=== PATIENT | male | born 1960 | race Caucasian/White ===

== ENCOUNTER → 2016-05-16 | Outpatient (CLI) | payer BC ==
--- NOTE | 2016-05-19 11:27 | SLEEPCENT ---
DATE OF PROCEDURE: 05/16/2016 ORDERED BY: Cecilia Das. Nocturnal polysomnography was performed for the retitration of pressure therapy in this patient with known obstructive sleep apnea syndrome. For testing, a [employer] Bro[employer] View full face mask of medium size was used. 9 cm of water pressure was initially applied to the circuit and the lights were extinguished. 7 hours and 31 minutes of data were reviewed. There were 382 minutes of sleep identified. Sleep latency was normal at 15.5 minutes. REM latency was normal at 62 minutes. Sleep architecture was fairly good. There were five rapid eye movement (REM) periods appreciated. Overall sleep efficiency was 86%. EKG showed a sinus rhythm with an average heart rate of 60 beats per minute. EEG showed normal wave forms for awake and sleep. Respiratory events were fully palliated with CPAP at a pressure of +9. CPAP tolerance was good. Remaining measures of sleep physiology were normal. IMPRESSION: Obstructive sleep apnea syndrome (G47.33). RECOMMENDATION: Nightly use of pressure therapy 9 cm of water.
== END ==
LOC: M SLEEP 19:37
PROVIDERS: ATTEND Nurse Practitioner Adult Health
DX: G47.33 Obstructive sleep apnea (adult) (pediatric) (principal)

== ENCOUNTER → 2016-08-07 | Outpatient (REF) | payer BC | LOC: M LAB REF 16:19 | PROVIDERS: ATTEND Nurse Practitioner Family | DX: J06.9 Acute upper respiratory infection, unspecified (principal) ==

== ENCOUNTER → 2016-12-25 | Outpatient (CLI) | payer BC ==
[~2016-12-25] MED LIST: E-Z-GAS II EFFERVESCENT PACKET (SODIUM BICARB./CITRIC ACID/SIMETHICONE) As Ordered ONE; E-Z-HD 98% w/w 340GM SUSP BTL As Ordered ONE; E-Z-PAQUE 96% w/w SUSP 176GM BTL As Ordered ONE
--- NOTE | 2016-12-26 05:46 | REP ---
BARIUM SWALLOW: The procedure was performed by MARY Sweeney, under the direct supervision of Dr. De Leon. All imaging was reviewed with Dr. De Leon prior to dictation. The patient was able to ingest liquid barium and air in a quantity sufficient to produce a double contrast examination. The oral and pharyngeal stages of deglutition are within normal limits. Esophageal transport was prompt and efficient. There was no evidence of esophagitis, stricture, mucosal ring or hiatal hernia. Gastroesophageal reflux was not observed. IMPRESSION: Unremarkable double contrast esophagram. Fluoroscopy time of 2 minutes and 41 seconds. Reviewed by MARY Beacuhamp 12/26/2016 08:17 AEdited and Signed by Jordan De Leon MD 12/26/2016 05:09 P
== END ==
LOC: M RAD 08:55
PROVIDERS: ATTEND Internal Medicine
DX: R13.10 Dysphagia, unspecified (principal)

== ENCOUNTER → 2017-09-14 | Outpatient (CLI) | payer BC ==
[2017-09-14 13:16] LABS: ALBUMIN 3.7 GM/DL (3.2-5.2); ALBUMIN/GLOBULIN RATIO 1.09 (1.00-1.93); ALKALINE PHOSPHATASE 91 U/L (45-117); ALT/SGPT 73 U/L (12-78); ANION GAP 6 MEQ/L (8-16); AST/SGOT 38 U/L (7-37); BILIRUBIN,TOTAL 0.6 MG/DL (0.2-1.0); BLOOD UREA NITROGEN 13 MG/DL (7-18); CARBON DIOXIDE LEVEL 26 MEQ/L (21-32); CHLORIDE LEVEL 109 MEQ/L (98-107); CHOLESTEROL LEVEL 176 MG/DL (<200); CHOLESTEROL RISK RATIO 3.911 (<5); CREATININE FOR GFR 1.12 MG/DL (0.70-1.30); GLOMERULAR FILTRATION RATE > 60.0 (>56); GLUCOSE, FASTING 98 MG/DL (70-100); HDL CHOLESTEROL 45 MG/DL (>40); LDL CHOLESTEROL 99.4 MG/DL (<100); NON-HDL-C 131 MG/DL; POTASSIUM SERUM 4.5 MEQ/L (3.5-5.1); SODIUM LEVEL 141 MEQ/L (136-145); TOTAL PROTEIN 7.1 GM/DL (6.4-8.2); TRIGLYCERIDES LEVEL 158 MG/DL (<150)
[2017-09-14 14:23] LABS: MALB URINE SIEMENS 12.4 MG/L
== END ==
LOC: M LAB 11:01
DX: I10 Essential (primary) hypertension (principal); E78.00 Pure hypercholesterolemia, unspecified; R73.09 Other abnormal glucose
CPT/HCPCS: 80053

== ENCOUNTER → 2017-10-05 | Outpatient (CLI) | payer BC | LOC: M RAD 11:08 | DX: F17.210 Nicotine dependence, cigarettes, uncomplicated (principal); Z12.2 Encounter for screening for malignant neoplasm of respiratory organs | CPT/HCPCS: G0297 ==